=== PATIENT | female | born 1975 | race Caucasian/White ===

== ENCOUNTER 2023-08-26 09:34 | Emergency (ER) | payer OTHER, SELFPAY ==
[2023-08-26 09:43] VITALS: BP 131/86
--- NOTE | 2023-08-26 10:44 | ED.GENMED ---
History of Present Illness
General
Chief Complaint: Abdominal Symptoms
Source: patient
Exam Limitations: none
Time Seen by Provider: 08/26/23 10:01
Nursing documentation reviewed up to this point in time: agreed with
Travel History
Have you had any contact with someone who has COVID-19?: No
Do you have any symptoms of coronavirus? Fever > 100 degrees, chills, cough, shortness of breath, sore throat, loss of taste or smell, muscle aches, or headache?: No
History of Present Illness
History of Present Illness:
48-year-old female history of gluten sensitivity presents with diarrhea possibly after having some gluten's. Persistent for about 10 days, 4 pound weight loss had stool samples which are resolved GI apparently was a mixup with her outpatient lab no
blood in her stool no recent antibiotic no foreign travel around the time that she started having symptoms she was in the proximity of her niece who has C. difficile was in the same bathroom, patient has no crampiness,
Past History
Past History
ED Past Medical History: Other (Celiac)
Social History
Tobacco: Non-smoker
Alcohol: None
Drug: None
Living: with family
Employment: Employed
Review of Systems
Review of Systems
All Other Systems: Not applicable
Constitutional: Reports weight loss; Denies fever or fatigue
EENT: Reports no symptoms
Cardiac: Reports no symptoms
ABD/GI: Reports diarrhea; Denies abdominal pain
: Reports no symptoms
Musculoskeletal: Reports no symptoms
Phy Exam
Physical Exam
Physical Exam:
Physical Exam
General: no apparent distress, not acutely ill
Neck: Lips are slightly dry
Heart: s1/s2 regular rate and rhythm, no murmur. equal radial pulses.
Lungs: no acute respiratory distress. clear bilaterally
Abdomen: Nontender
Neuro: alert and oriented. no focal neurological deficits
Skin: no rash
Psychiatric: well kept. interactive and cooperative
Extremities: no edema.
Course
Orders/Labs/Results
Orders:
Orders
08/26/23 10:42
0.9% Sodium Chloride 1000 ml [Nss] 1,000 ml IV BOLUS
08/26/23 11:12
Complete Blood Count/With Diff Urgent
Comprehensive Metabolic Panel Urgent
08/26/23 11:14
Ova & Parasites Giardia/Crypto AG [Giardia/Cryptosporidium Ag] Urgent
QUETA Source: Feces/Stool
Specimen Description:
Date Specimen was Collected: 08/26/23
Time Specimen was Collected: 11:13
STOOL [C difficile Antigen & Toxins] Urgent
QUETA Source: Feces/Stool
Specimen Description:
Date Specimen was Collected: 08/26/23
Time Specimen was Collected: 11:13
Stool Culture Urgent
QUETA Source: Feces/Stool
Specimen Description:
Date Specimen was Collected: 08/26/23
Time Specimen was Collected: 11:13
08/26/23 11:16
Urinalysis Reflex To Culture Urgent
Date Specimen was Collected: 08/26/23
Time Specimen was Collected: 11:15
08/26/23 12:19
Loperamide [Imodium] 2 mg PO NOW STA
Abnormal Lab Results
08/26/23
11:12
Monocytes % 9.6 H %
(1.7-9.3)
Chloride 109 H mmol/L
(98-107)
Carbon Dioxide 18 L mmol/L
(22-30)
Calcium 10.3 H mg/dl
(8.4-10.2)
08/26/23 11:12
08/26/23 11:12
Vital Signs
Initial and Last Documented VS:
Initial Vital Signs
Temp Pulse Resp BP Pulse Ox
98.0 F 84 18 131/86 98
08/26/23 09:43 08/26/23 09:43 08/26/23 09:43 08/26/23 09:43 08/26/23 09:43
Last Documented Vital Signs
Temp Pulse Resp BP Pulse Ox
98.0 F 84 18 131/86 98
08/26/23 09:43 08/26/23 09:43 08/26/23 09:43 08/26/23 09:43 08/26/23 09:43
MDM/Problems Addressed
Differential Diagnosis Includes:
C. difficile celiac infectious diarrhea noninfectious diarrhea
MDM/Problems Addressed:
Weight loss diarrhea
Chronic conditions affecting care:
Celiac
Acute Exacerbation and/or Progression of Chronic Illness:
Exposure to C. difficile
*Critical Care Note
Total Time (30-74mins, 75-104mins- exclusive of procedures): Not Applicable
Update Note
Update Note:
Update C. difficile noted negative, other cultures are pending will start some Imodium she has no bloody stools, this may all be related to her celiac, she is comfortable with discharge home
ED Attending Note
-
Portions of this chart may have been created with voice recognition software.� Occasional wrong word or��sound alike� substitutions may have occurred due to the inherent limitations of voice recognition software.
Discharge Plan
Departure
Patient Disposition: Home (Routine Discharge)
Date of Disposition: 08/26/23
Time of Disposition: 12:21
Patient with high blood pressure during this ER visit?: No
Condition: Good
Discharge Problem:
Diarrhea
Instructions: Diarrhea in teens and adults, Dehydration, Adult (DC), [place] Diet
Prescriptions:
New
loperamide [Imodium A-D] 2 mg capsule
2 mg PO Q6H PRN (Reason: loose stool) Qty: 20 0RF
No Action
fexofenadine [Alie] 180 mg Tablet
180 mg PO HS
levothyroxine 88 mcg Tablet
88 mcg PO DAILY
duloxetine 20 mg Capsule,Delayed Release(Dr/Ec)
20 mg PO DAILY
Visbiome 112.5 billion cell Capsule
1 cap PO DAILY
Sudafed
1 tab PO DAILYPRN PRN (Reason: allergies)
Patient Comments:
08/26/2023, Sudafed 4 hr per pt.
Referrals:
Candy Swanson MD [Family Provider] -
Interventions
Interventions:
*Risk Screen - Suicide Last Done: 08/26/23 09:40
*General Assessment Last Done: 08/26/23 09:40
*Neglect/Abuse Screening Last Done: 08/26/23 09:40
ED- Fall Risk Assessment Last Done: 08/26/23 11:18
JP-Aoumkm-Aaaibtyghw Assessment Last Done: 08/26/23 11:18
Discharge Date and Time
Print Language: SOU[place]
[2023-08-26] MEDS: NSS 1000 IV (11:11)
[2023-08-26 11:20] VITALS: BMI 21.0
[2023-08-26 11:25] LABS: % Basophils 0.7 % (0-2); % Eosinophils 0.8 % (0-6); % Immature Granulocytes 0.2 % (0-0.5); % Lymphocytes 44.4 % (20.5-51.1); % Monocytes 9.6 % (1.7-9.3); % Neutrophils 44.3 % (42.2-75.2); Absolute Eosinophils 0.1 10^3/uL (0-0.7); Absolute Lymphocytes 2.6 10^3/uL (1.2-3.4); Absolute Monocytes 0.6 10^3/uL (0.1-0.6); Absolute Neutrophils 2.6 10^3/uL (1.4-6.5); Hematocrit 37.1 % (37.0-47.0); Hemoglobin 13.2 g/dL (12.0-16.0); Mean Corp Hgb Conc. 35.6 g/dL (33.0-37.0); Mean Corpuscular Hgb 30.8 pg (27.0-31.0); Mean Corpuscular Volume 86.7 fL (81.0-99.0); Mean Platelet Volume 9.5 fL (7.4-10.4); Nucleated Red Blood Cells % 0 %; Platelet Count 386 10^3/uL (130-400); Red Blood Cell Count 4.28 10^6/uL (4.20-5.40); Red Cell Dist. Width 14.2 % (11.5-14.5); White Blood Cell Count 5.9 10^3/uL (4.8-10.8)
[2023-08-26 11:48] LABS: ALT (SGPT) 20 U/L (0-35); AST (SGOT) 21 U/L (14-36); Albumin 4.8 g/dl (3.5-5.0); Alkaline Phosphatase 57 U/L (38-126); Blood Urea Nitrogen 11 mg/dl (7-17); Calcium 10.3 mg/dl (8.4-10.2); Carbon Dioxide 18 mmol/L (22-30); Chloride 109 mmol/L (98-107); Estimated Creatinine Clearance 83 ml/min; Glucose 89 mg/dl (70-99); Potassium 4.2 mmol/L (3.5-5.1); Sodium 138 mmol/L (135-145); Total Bilirubin 0.6 mg/dl (0.2-1.3); Total Protein 7.6 g/dl (6.3-8.2); eGFR > 60.00
[2023-08-26 11:49] LABS: Urine Albumin Negative (Neg - Trace); Urine Bilirubin Negative (Negative); Urine Character Clear (Clear); Urine Color Straw; Urine Glucose Negative (Negative); Urine Ketone Negative (Negative); Urine Leukocyte Negative (Negative); Urine Nitrite Negative (Negative); Urine Occult Blood Negative (Negative); Urine Urobilinogen Negative (Neg - 1+)
[2023-08-26] MEDS: IMODIUM 2 MG PO (12:30)
[2023-08-26 12:39] VITALS: BP 131/78
[2023-08-26 12:47] VITALS: BP 131/78
== END 2023-08-26 12:48 | disposition home or self-care (01) ==
LOC: EMR 09:34
PROVIDERS: EMERGENCY PHYSICIAN Emergency Medicine; FAMILY PHYSICIAN Family Medicine
DX: R19.7 Diarrhea, unspecified (principal)
CPT/HCPCS: 99283; 80053; 81003; 85025; 87045; 87046; 87324; 87328; 87329; 87427; 87449

== ENCOUNTER → 2023-10-29 16:24 | Outpatient (REF) | payer OTHER, SELFPAY | LOC: HWWDC 16:24 | PROVIDERS: ATTENDING PHYSICIAN Family Medicine | DX: Z12.31 Encounter for screening mammogram for malignant neoplasm of breast (principal) | CPT/HCPCS: 77063; 77067 ==

== ENCOUNTER → 2023-11-17 09:26 | Outpatient (REF) | payer OTHER, SELFPAY | LOC: WDC 09:26 | PROVIDERS: ATTENDING PHYSICIAN Family Medicine | DX: R92.8 Other abnormal and inconclusive findings on diagnostic imaging of breast (principal) | CPT/HCPCS: 77065 ==

== ENCOUNTER → 2023-12-01 07:00 | Outpatient (REF) | payer OTHER, SELFPAY ==
--- NOTE | 2023-12-02 11:39 | OID.BR.INTR ---
OID Breast Navigator - Initial
- -
Did not meet patient at time of biopsy. Will follow up per protocol.
== END ==
LOC: WDC 07:00
PROVIDERS: ATTENDING PHYSICIAN Family Medicine
DX: R92.1 Mammographic calcification found on diagnostic imaging of breast (principal)
CPT/HCPCS: 88305; 19081; 76098; 88342; A4648

== ENCOUNTER → 2023-12-28 07:36 | Outpatient (REF) | payer OTHER, SELFPAY | LOC: WDC 07:36 | PROVIDERS: ATTENDING PHYSICIAN Surgery | DX: N60.89 Other benign mammary dysplasias of unspecified breast (principal) | CPT/HCPCS: 88307; 19281; 76098; A4648 ==

== ENCOUNTER 2024-02-11 06:20 | Day surgery (SDC) | payer OTHER, SELFPAY ==
[2024-01-28 08:52] LABS: Hematocrit 34.4 % (37.0-47.0); Hemoglobin 11.7 g/dL (12.0-16.0); Mean Corpuscular Hgb 29.7 pg (27.0-31.0); Mean Corpuscular Volume 87.3 fL (81.0-99.0); Mean Platelet Volume 9.6 fL (7.4-10.4); Platelet Count 344 10^3/uL (130-400); Red Blood Cell Count 3.94 10^6/uL (4.20-5.40); Red Cell Dist. Width 13.9 % (11.5-14.5); White Blood Cell Count 5.3 10^3/uL (4.8-10.8)
[2024-01-28 09:20] LABS: ALT (SGPT) 18 U/L (0-35); AST (SGOT) 20 U/L (14-36); Albumin 4.4 g/dl (3.5-5.0); Alkaline Phosphatase 47 U/L (38-126); Blood Urea Nitrogen 13 mg/dl (7-17); Calcium 9.6 mg/dl (8.4-10.2); Carbon Dioxide 19 mmol/L (22-30); Chloride 107 mmol/L (98-107); Glucose 87 mg/dl (70-99); Potassium 4.1 mmol/L (3.5-5.1); Sodium 139 mmol/L (135-145); Total Bilirubin 0.5 mg/dl (0.2-1.3); eGFR > 60.00
[2024-01-28 09:26] LABS: Prealbumin (Transthyretin) 23.6 mg/dl (17.6-36.0)
[2024-01-28 09:35] VITALS: BMI 23.5
[2024-01-28 09:39] LABS: Vitamin D, 25-OH*** 63.3 ng/mL (30-80)
[2024-02-11 10:41] VITALS: BMI 23.5
[2024-02-11 10:42] VITALS: BP 120/76
[2024-02-11] MEDS: LOVENOX 40 MG SC (10:46)
[2024-02-11] MEDS: TYLENOL 1000 MG PO (10:46)
[2024-02-11 13:52] VITALS: BP 97/56
[2024-02-11 14:00] VITALS: BP 97/62
[2024-02-11 14:15] VITALS: BP 108/71
[2024-02-11 14:30] VITALS: BP 114/75
== END 2024-02-11 14:47 | disposition home or self-care (01) ==
LOC: SDS 06:20
PROVIDERS: ATTENDING PHYSICIAN Surgery; FAMILY PHYSICIAN Family Medicine
DX: D05.11 Intraductal carcinoma in situ of right breast (principal)
CPT/HCPCS: 19301; 88307; 36415; 80053; 82306; 84134; 85027; 93005; A4648

== ENCOUNTER 2024-05-05 06:58 | Outpatient (RCR) | payer OTHER, SELFPAY | END 2024-05-05 23:59 | disposition home or self-care (01) | LOC: RPT 06:58 | PROVIDERS: ATTENDING PHYSICIAN Radiology Radiation Oncology; FAMILY PHYSICIAN Family Medicine | DX: I97.2 Postmastectomy lymphedema syndrome (principal); Z73.6 Limitation of activities due to disability; M96.2 Postradiation kyphosis; L90.5 Scar conditions and fibrosis of skin | CPT/HCPCS: 97110; 97112; 97140; 97162; 97530 ==

== ENCOUNTER 2024-05-26 12:55 | Outpatient (RCR) | payer OTHER, SELFPAY | END 2024-05-26 23:59 | disposition home or self-care (01) | LOC: RPT 12:55 | PROVIDERS: ATTENDING PHYSICIAN Radiology Radiation Oncology; FAMILY PHYSICIAN Family Medicine | DX: I97.2 Postmastectomy lymphedema syndrome (principal); C50.911 Malignant neoplasm of unspecified site of right female breast; Z73.6 Limitation of activities due to disability; L90.5 Scar conditions and fibrosis of skin; M96.2 Postradiation kyphosis; R25.2 Cramp and spasm; K59.00 Constipation, unspecified; N39.3 Stress incontinence (female) (male); Z79.811 Long term (current) use of aromatase inhibitors | CPT/HCPCS: 97110; 97164; 97530 ==

== ENCOUNTER → 2024-10-10 09:43 | Outpatient (REF) | payer OTHER, SELFPAY | LOC: WDC 09:43 | PROVIDERS: ATTENDING PHYSICIAN Surgery; FAMILY PHYSICIAN Family Medicine | DX: R92.2 Inconclusive mammogram (principal) | CPT/HCPCS: 76641 ==

== ENCOUNTER → 2024-10-30 07:00 | Outpatient (REF) | payer OTHER, SELFPAY | LOC: HWWDC 07:00 | PROVIDERS: ATTENDING PHYSICIAN Surgery; FAMILY PHYSICIAN Family Medicine | DX: Z12.31 Encounter for screening mammogram for malignant neoplasm of breast (principal); R92.2 Inconclusive mammogram; D05.11 Intraductal carcinoma in situ of right breast | CPT/HCPCS: 77063; 77067 ==